=== PATIENT | male | born 1980 | race African-American/Black ===

== ENCOUNTER 2017-05-26 07:29 | Emergency (ER) | payer OTHER ==
[~2017-05-26] VITALS: Ht 182.9 cm; Wt 122.5 kg
[~2017-05-26 07:29] MED LIST: NORCO 5-325 TA1 EACH PO; TORADOL 10 MG T10 MG PO; VALIUM5 MG PO
[2017-05-26 08:11] LABS: INFLUENZA A ANTIGEN None Detected (None Detect); INFLUENZA B ANTIGEN None Detected (None Detect)
[2017-05-26] MEDS ORDERED: IBUPROFEN 800800 MG PO (08:14)
[2017-05-26 08:23] VITALS: BP 160/102
== END 2017-05-26 08:25 | disposition home or self-care (01) ==
LOC: M.ERS 07:29
PROVIDERS: Personal Emergency Response Attendant
DX: B34.9 Viral infection, unspecified (principal)

== ENCOUNTER 2018-05-06 09:01 | Emergency (ER) | payer OTHER ==
[~2018-05-06] VITALS: Ht 182.9 cm; Wt 124.7 kg
[~2018-05-06 09:01] MED LIST changes: +IBUPROFEN 800800 MG PO
[2018-05-06] MEDS ORDERED: NORCO 5-325 TA1 EACH PO (09:42)
[2018-05-06 10:18] VITALS: BP 182/114
== END 2018-05-06 10:18 | disposition home or self-care (01) ==
LOC: M.ERS 09:01
DX: S93.402A Sprain of unspecified ligament of left ankle, initial encounter (principal); W00.0XXA Fall on same level due to ice and snow, initial encounter; Y93.89 Activity, other specified; Y92.89 Other specified places as the place of occurrence of the external cause; Y99.8 Other external cause status

== ENCOUNTER 2019-01-21 12:35 | Emergency (ER) | payer OTHER ==
[~2019-01-21] VITALS: Ht 182.9 cm; Wt 129.3 kg
[2019-01-21] MEDS ORDERED: NORVASC 2.5 MG2.5 M1 (12:55)
[2019-01-21] MEDS ORDERED: NAPROSYN500 MG PO (13:27)
[2019-01-21 13:39] VITALS: BP 153/95
== END 2019-01-21 13:41 | disposition home or self-care (01) ==
LOC: M.ERS 12:35
DX: S20.212A Contusion of left front wall of thorax, initial encounter (principal); I10 Essential (primary) hypertension; X50.9XXA Other and unspecified overexertion or strenuous movements or postures, initial encounter; Y93.89 Activity, other specified; Y92.89 Other specified places as the place of occurrence of the external cause; Y99.0 Civilian activity done for income or pay

== ENCOUNTER 2019-09-27 12:16 | Emergency (ER) | payer OTHER ==
[~2019-09-27] VITALS: Ht 182.9 cm; Wt 136.1 kg
[~2019-09-27 12:16] MED LIST changes: +NAPROSYN500 MG PO; +NORVASC 2.5 MG2.5 M1
[2019-09-27] MEDS ORDERED: COZAAR 25 MG TA25 M1 PO (12:35)
[2019-09-27] MEDS ORDERED: NAPROSYN500 MG PO (13:49)
[2019-09-27] MEDS ORDERED: NORCO 5-325 TA1 EAC1 PO (13:49)
[2019-09-27] MEDS ORDERED: MEDROLDOSEPACK PO (13:49)
[2019-09-27 15:16] VITALS: BP 162/99
== END 2019-09-27 15:17 | disposition home or self-care (01) ==
LOC: M.ERS 12:16
DX: M75.41 Impingement syndrome of right shoulder (principal); I10 Essential (primary) hypertension